=== PATIENT | female | born 1945 | race Caucasian/White ===

== ENCOUNTER 2016-10-04 08:48 | Day surgery (SDC) | payer MEDICARE, OTHER ==
[~2016-10-04] VITALS: Ht 172.7 cm; Wt 69.2 kg
[2016-10-04] VITALS (9 sets, daily range): BP systolic 135–145; BP diastolic 57–97; PULSE 48–72; RESP 14–20; O2SAT 92–99
[~2016-10-04 08:48] MED LIST: AMLO10TA3 PO; ASCO100089 PO; ASPI-973 PO; ATOR80TA PO; BISO5TAB2 PO; CALC500T53 PO; CHOL10008 PO; HYDR-4003 PO; ISOS60TA2 PO; LISI10TA PO; NITR0.4T6 SL
[2016-10-04] MEDS ORDERED: Neostigmine 1 mg/mL 5 mL Inj ONE (08:49)
[2016-10-04] MEDS ORDERED: Rocuronium 10 mg/mL 5 mL Inj ONE (08:49)
[2016-10-04] MEDS ORDERED: Glycopyrrolate 0.2 mg/mL 5 mL Inj ONE (08:49)
[2016-10-04] MEDS ORDERED: Propofol 10,000 mCg/mL 20 mL Inj ONE (08:49)
[2016-10-04] MEDS ORDERED: Ondansetron 2 mg/mL 2 mL Inj ONE (08:49)
[2016-10-04] MEDS ORDERED: MetoCLOpramide 5 mg/mL 2 mL Inj ONE (08:49)
[2016-10-04] MEDS ORDERED: Dexamethasone 4 mg/mL Inj ONE (08:49)
[2016-10-04] MEDS: Lactated Ringer's 1,000 ML IV SCH ×3 (09:35→12:13)
--- NOTE | 2016-10-04 11:42 | PCM.HPANE ---
Patient Data Surgeon Admitting Provider: Attending Provider:Jones Rob MD Primary Care Physician:Manny Panchal MD [place] Reason for Visit Right Inguinal Hernia Ht/WT & BMI Height (Feet): 5 Height (Inches): 8.00 Weight (Kilograms): 69.200 Body Mass Index 23.00 Allergies Coded Allergies: ciprofloxacin (Verified Allergy, Severe, facial swelling, 04/06/16) Past Anesthesia History Anesthesia History: Denies:: Anesthesia Reactions, Malignant Hyperthermia Diabetes History Hx Diabetes?: No MRSA MRSA: No Medications Blood Thinner: Aspirin Hypertension Medication: Yes Home Meds Incl Beta Harman: No Reported Medications Cholecalciferol (Vitamin D3) (Vitamin D3)1,000 Unit Tab.chew1,000 Unit PO DAILY 10/03/16 Ascorbic Acid (Vitamin C)1,000 Mg Tab.chew1,000 Mg PO DAILY Ref 0 10/03/16 Nitroglycerin SL 0.4 Mg Tab.subl0.4 Mg SL PRN For Chest Pain 10/03/16 Aspirin 81 Mg Rqkpos85 Mg PO DAILY Ref 0 10/03/16 Lisinopril 10 Mg Oqttpx59 Mg PO BID 30 Days Ref 0 10/03/16 Isosorbide MN ER 60 Mg Tab.er.24h60 Mg PO DAILY 10/03/16 Hydrocodone-Acetaminophen 5-325 mg 1 Each Tablet1-2 Tablet PO TID PRN For Pain Ref 0 10/03/16 Calcium Carbonate 200 Mg Tab.iumg682 Mg PO DAILY 10/03/16 Bisoprolol Fumarate 5 Mg Tablet5 Mg PO DAILY 10/03/16 Atorvastatin (Lipitor)80 Mg Ctkakn70 Mg PO DAILY Ref 0 10/03/16 Amlodipine 10 Mg Cchcvd40 Mg PO DAILY Ref 0 10/03/16 Discontinued Reported Medications Famotidine (Pepcid)20 Mg Qqeywy59 Mg PO BID PRN For Dyspepsia or Heartburn 04/12/16 Cholecalciferol (Vitamin D3) (Vitamin D)1,000 Unit Capsule1,000 Unit PO DAILY # 1 BOTTLE Ref 0 04/06/16 Nitroglycerin SL (Nitrostat)0.4 Mg Tab.subl0.4 Mg SL Q5MIN PRN angina #1 BOTTLE 04/06/16 Cholecalciferol (Vitamin D3) (Vitamin D3)1,000 Unit Tab.chew1,000 Unit PO DAILY 11/02/15 Ascorbic Acid (Vitamin C)1,000 Mg Tab.chew1,000 Mg PO DAILY Ref 0 11/02/15 Lisinopril 10 Mg Ilzujl50 Mg PO BID 30 Days Ref 0 11/02/15 Isosorbide MN ER 30 Mg Tab.er.24h60 Mg PO MORNING 11/02/15 Calcium Carbonate (Children's Soothe)400 Mg Tab.edeu898 Mg PO DAILY 11/02/15 Bisoprolol Fumarate 5 Mg Tablet5 Mg PO DAILY 11/02/15 Atorvastatin (Lipitor)80 Mg Pcdntd91 Mg PO HS Ref 0 11/02/15 Aspirin 81 Mg Kfggqs09 Mg PO DAILY Ref 0 11/02/15 Amlodipine 2.5 Mg Tablet5 Mg PO DAILY Ref 0 11/02/15 Discontinued Scripts Hydrocodone-Acetaminophen 5-325 mg 1 Each Tablet1-2 Tablet PO TID PRN For Pain # 35 TABLET Ref 0 Prov:Steven Rivera MD 03/25/16 History History of ENT Problems?: No HEENT History: Denies:: Cataracts ("forming") Dysphagia Glaucoma Hearing Problem Sinus Problem TMJ Denture Type: Partial- Upper Hx of Heart Problems?: Yes Cardiovascular History: Positive for:: Cardiac Surgery (R[facility]IE 2013) Chest Pain ("PLEURITIC" QUALITY, NONE) Congestive Heart Failure Hypertension Valvular Heart Disease (echo 2013- ef 65-70%) Denies:: Edema Heart Murmur Irregular Heartbeat Hx of Respiratory Problem?: Yes Respiratory History: Positive for:: Dyspnea (on exertion ) Denies:: Asthma COPD Chest Surgery Oxygen Administration Pneumonia Tuberculosis Use of C-PAP Machine Use of Inhalers / NEBS Hx Neurologic Problems?: No Neurological History: Positive for:: Dizziness Denies:: CVA Dementia Headaches Multiple Sclerosis Parkinson's Disease Seizures TIA Hx of GI Problems?: Yes Gastrointestinal History: Positive for:: Diverticulitis Denies:: Gall Bladder Disease Gastroesphageal Reflux Gastrointestinal Bleeding Heartburn Hepatitis Hiatal Hernia Other GI Pertinent History: right inguinal hernia current admission problem Hx of Problems?: No Genitourinary History: Denies:: Kidney Stones Urinary Tract Infection Female Hx: Denies:: Currently Problems with Breasts? Skin History: Denies:: History Skin Disorders? Pressure Ulcers Hx Musculoskeletal Problems?: No Musculoskeletal History: Denies:: Back Injury Fibromyalgia Joint Replacement Musculoskeletal Trauma Myasthenia Gravis Osteoarthritis Systemic Lupus Hx of Psycho/Social Problems?: No Hx Surgeries?: Yes (hyst, appy tonsil) Hx Any Other Health Problems?: Yes Other History: Positive for:: Hospitalization (CARDIAC) Denies:: Cancer Endocrine Disease Thyroid Disease History Blood Transfusions: Positive for:: Accept Blood Products? Blood Transfusions (after childbirth) Denies:: Blood Transfuse Reaction Hx Diabetes: No Hx Alcohol Use: YesHx Substance Use: No Smoking Status: Former Smoker Have You Smoked inLast 12 mo: No Stop/Bang Treated for Sleep Apnea?: No Do You Have a CPAP Machine?: No S-Snoring: Do You Snore Loudly: Yes T-Tired: feel tired, fatigued: No O-Obsered: Observed not breath: No P-Blood Pressure: treated: Yes B- Body Mass Index > 35 kg/m2: No A- Age over 50: Yes N- Neck Large Circumference: No G- Gender Male: No HAO Total Score: 3 HAO Risk Assessment: Low Risk, <3 Yes Risk Assessment Category Category 1A: Patient has history of documented sleep apnea, and HAS NOT received any narcotic, sedative or anesthesia administration during this stay. Category 1B: Patient has history of documented sleep apnea, and HAS received any narcotic , sedative or anesthesia administration during this stay Category 2: Patient has SUSPECTED Obstructive Sleep Apnea, and HAS received any narcotic , sedative or anesthesia administration during this stay. Category 3: Patient has SUSPECTED Obstructive Sleep Apnea and HAS NOT received narcotic, sedative or anesthesia administration during this stay. Category 4: Outpatient in Procedural Areas with known sleep apnea or who screen positive for High Risk via the STOP/BANG questionnaire. Exam Exam Vital Signs Vital Signs Date Time Temp Pulse Resp B/P Pulse Ox O2 Delivery O2 Flow Rate FiO2 10/04/16 09:13 36 48 16 144/66 97 Room Air General Appearance: Oriented X3 HEENT/AIRWAY: MP 2 Lungs: Normal Air Movement Heart: Regular Rate/Rhythm Meds/Labs/Diagnostics Admission Meds Current Medications Lactated Ringer's (Lr) 1,000 ml @ 120 mls/hr Q8H20M IV Last administered on t 09:35; Start 10/04/16 at 05:00; Stop 10/04/16 at 13:19 Plan Impression Patient chart reviewed, patient interviewed and anesthestic plan with risks, benefits, and alternatives discussed, and informed consent obtained. NPO Status: 0700 WATER ASA Physical Status: ASA3 Severe Disease Anesthetic Plan: GA Bene/Risks/Altern/Consents: Yes HP Complete Prior to Induction: Yes Fantasma Marie MD Oct 04, 2016 11:42
[2016-10-04] MEDS: CeFAZolin 2 Gm/50 mL D5W IV Premix IV ONE ×3 (11:47→12:13)
[2016-10-04] MEDS ORDERED: Bupivacaine-MPF 0.5% 30 mL Inj INFILTRATE ONE (12:12)
[2016-10-04] MEDS ORDERED: Lactated Ringer's 500 ML IV PRN (13:08)
[2016-10-04] MEDS ORDERED: Lactated Ringer's 1,000 ML IV SCH (13:08)
[2016-10-04] MEDS ORDERED: Ondansetron 2 mg/mL 2 mL Inj IVPUSH PRN (13:10)
[2016-10-04] MEDS ORDERED: EPHEDrine Sulfate 50 mg/mL Inj IVPUSH PRN (13:10)
[2016-10-04] MEDS ORDERED: Dexamethasone 4 mg/mL Inj IVPUSH PRN (13:10)
[2016-10-04] MEDS ORDERED: HYDROmorphone 1 mg/mL Inj IVPUSH PRN (13:10)
[2016-10-04] MEDS ORDERED: Phenylephrine 10,000 mCg/mL Inj IVPUSH PRN (13:10)
[2016-10-04] MEDS ORDERED: MetoCLOpramide 5 mg/mL 2 mL Inj IVPUSH PRN (13:10)
[2016-10-04] MEDS ORDERED: oxyCODONE-Acetamin 5-325 mg Tablet PO PRN (14:10)
[2016-10-04] MEDS: fentaNYL-PF 50 mCg/mL 2 mL Inj IVPUSH PRN ×2 (14:22→14:47)
--- NOTE | 2016-10-04 14:37 | OP ---
[address] [address] OPERATIVE REPORT PATIENT: TOMASZ SOTO : 1945 MR#: [id number] ADMIT: 10/04/2016 JOB ID: [id number] DATE OF SURGERY: 10/04/2016 ANESTHESIA: General. PREOPERATIVE DIAGNOSIS(ES): Recurrent right inguinal hernia. POSTOPERATIVE DIAGNOSIS(ES): Incarcerated right femoral hernia. OPERATION: Laparoscopic repair of incarcerated right femoral hernia (transabdominal approach). SURGEON: Jones Rob MD. [employer] FEEDER: Deedee Carver PA-C (the respiratory therapy assistant was required for the safe and timely completion of the case), as well as LIDA Ramirez. COMPLICATIONS: None. ESTIMATED BLOOD LOSS: Minimal. CONDITION: Satisfactory. SPECIMEN: None. FINDINGS: The prior hernia repair was visible and the mesh remained in good position. There was a femoral hernia that contained incarcerated omentum. This was repaired with a transabdominal approach, placing a piece of Bard 3D Max mesh in a preperitoneal location to cover the femoral defect. INDICATIONS/SIGNIFICANT HISTORY: The patient is a 71-year-old female for whom I performed an open right inguinal hernia repair with mesh in March 2016. That was for what turned out to be a large direct hernia with an essentially obliterated floor. I used the UltraPro hernia system at that time. The patient recently developed recurrent episodic bulges in the right groin area accompanied by pain and nausea. She came and saw me. The exam was equivocal but the history clearly indicated a recurrent hernia. Therefore, I offered laparoscopic repair. OPERATIVE TECHNIQUE: The patient was taken to the operating room and placed in the supine position. General anesthesia was administered. Preoperative antibiotics were given. The abdomen was prepped and draped in a standard surgical fashion. I planned to do this in a TEP approach. A small infraumbilical incision was made and dissection carried down to the anterior rectus sheath. The anterior rectus sheath was opened just to the lateral od midline and a trocar inserted. However, as soon as I put my camera in it is obvious it was intraperitoneal. I therefore tried on the other side of the linea alba but, again, was intraperitoneal. At that point I inspected and saw that probably from her previous hysterectomy the peritoneum was very attenuated in the midline and the inferior abdomen. Therefore, I decided to proceed with a transabdominal approach. Local anesthetic was injected, followed by insertion of 5 mm ports in the left upper and right upper abdomen. I then began by opening up the peritoneum transversely all above the obvious hernia. The hernia contents were grasped and reduced. There was some incarcerated omentum for which I used scissors to release it. I then made my peritoneal flap. I could visualize the mesh from the prior repair. It was laid in good position. I gently teased the peritoneum off that with a combination of blunt dissection and sharp dissection. Eventually, the flap was completely developed down to the obvious femoral hernia. I then reduced the hernia sac. Eventually, I had to transect the distal aspect, as it would not completely reduce. I then cleared deep to this a little bit to create room for the mesh. A right-sided Bard 3D Max medium mesh was inserted into the abdomen and placed into the preperitoneal space. It was a little too long and rather dissect out further laterally because the femoral defect was so small, I elected to trim the tail off the mesh. I then replaced it. I used a single OptiFix tack to secure it to Patrick ligament. There was good coverage of the femoral space and overlapped my previous hernia repair. I then began to close the peritoneum with a V-Loc suture. However, I inadvertently had been given one that was much longer than typical and so, I was about prison closed. Because it was proving to be quite difficult, I elected to cut that suture and close the rest the peritoneum using the tacks. The repair was inspected and looked good. Pneumoperitoneum was released. The ports were removed. The midline fascia was closed using 0 PDS. Skin was closed using 4-0 Monocryl. The entire procedure was well tolerated without complication.
--- NOTE | 2016-10-04 15:00 | PCM.ANEP1 ---
Post Anesthesia Phase 1 PACU Phase 1 Assessment Vital Signs Vital Signs Date Time Temp Pulse Resp B/P Pulse Ox O2 Delivery O2 Flow Rate FiO2 10/04/16 14:42 36.8 57 17 141/58 95 Nasal Cannula 3 10/04/16 14:30 36.8 56 14 140/57 95 Nasal Cannula 3 10/04/16 14:15 69 20 135/97 92 Nasal Cannula 3 10/04/16 14:10 71 20 139/62 92 Room Air 10/04/16 14:05 72 18 145/79 99 Simple Mask 10 10/04/16 14:03 36.3 145/79 99 Simple Mask 10 10/04/16 09:13 36 48 16 144/66 97 Room Air Anesthetic Administered: GA Level of Alertness: Awake, talking Pain: No Nausea or Vomiting: No Oxygen Delivery: Room Air Lungs: Normal Air Movement Fantasma Marie MD Oct 04, 2016 15:00
--- NOTE | 2016-10-04 15:01 | PCM.ANEP2 ---
Post Anesthesia Evaluation ASA/CMS Post Anesthesia VS in Patient's Normal Range?: Yes Resp Stable; Airway Patent?: Yes CV Function & Hydration Stable: Yes Mental Status Recovered?: Yes Pain control Satisfactory?: Yes N/V Control Satisfactory?: Yes Fantasma Marie MD Oct 04, 2016 15:01
== END 2016-10-04 23:59 | disposition home or self-care (01) ==
LOC: SAS 08:48
PROVIDERS: ATTEND General Practice
DX: K41.30 Unilateral femoral hernia, with obstruction, without gangrene, not specified as recurrent (principal); I10 Essential (primary) hypertension; I25.10 Atherosclerotic heart disease of native coronary artery without angina pectoris; Z95.5 Presence of coronary angioplasty implant and graft; Z79.82 Long term (current) use of aspirin